=== PATIENT | male | born 1980 | race Caucasian/White ===

== ENCOUNTER 2018-12-28 14:13 | Emergency (ER) | payer OTHER ==
[~2018-12-28] VITALS: Ht 165.1 cm; Wt 68.0 kg
[2018-12-28] MEDS ORDERED: AUGMENTIN 875-1 EACH PO (15:37)
[2018-12-28 15:52] VITALS: BP 126/86
== END 2018-12-28 15:54 ==
LOC: M.ERS 14:13
DX: S46.322A Laceration of muscle, fascia and tendon of triceps, left arm, initial encounter (principal); S51.012A Laceration without foreign body of left elbow, initial encounter; F32.9 Major depressive disorder, single episode, unspecified; W54.0XXA Bitten by dog, initial encounter; Y93.89 Activity, other specified; Y92.89 Other specified places as the place of occurrence of the external cause; Y99.8 Other external cause status